=== PATIENT | female | born 1940 | race Caucasian/White ===

== ENCOUNTER 2016-11-18 12:52 | Outpatient (CLI) ==
--- NOTE | 2016-11-19 07:23 | MAMMO ---
EXAM: Digital screening mammogram HISTORY: Screening mammogram COMPARISON: Mammogram 10/13/2013 FINDINGS: Bilateral CC and MLO views of the breasts were performed digitally and demonstrate hetero geneously dense breast density (50 - 75%). Bilateral benign-appearing calcifications are unchanged w hen compared to prior exam. Breast density may limit the evaluation of subtle nodules. There is no d iscrete abnormal nodule or calcification. There is no significant interval change. IMPRESSION: No new or suspicious calcification or nodule RECOMMENDATION: Annual screening mammogram BIRADS category II: Benign findings
== END 2016-11-18 12:53 | disposition home or self-care (01) ==
LOC: RAD 12:52
PROVIDERS: ATTEND Internal Medicine
DX: Z12.31 Encounter for screening mammogram for malignant neoplasm of breast (principal)

== ENCOUNTER 2017-01-21 11:57 | Outpatient (CLI) | payer OTHER ==
[2017-01-21] MEDS ORDERED: PROLIA SUBCUT STA (12:15)
[2017-01-21 12:25] VITALS: BP 113/71; TEMP 97.9
== END 2017-01-21 11:58 | disposition home or self-care (01) ==
LOC: OPMED 11:57
PROVIDERS: ATTEND Internal Medicine
DX: M81.0 Age-related osteoporosis without current pathological fracture (principal)
CPT/HCPCS: 96372

== ENCOUNTER 2017-05-13 13:26 | Outpatient (CLI) ==
--- NOTE | 2017-05-13 13:51 | DI ---
EXAM: Chest two views HISTORY: Chronic obstructive pulmonary disease COMPARISON: 05/03/2015 TECHNIQUE: Two views of the chest were performed FINDINGS: Bibasilar scarring. No definite consolidation. Lungs are hyperinflated. There is no ple ural effusion or pneumothorax. The heart is normal in size. The mediastinal contour is normal, not ing atherosclerosis. There are no acute abnormalities of the bones. IMPRESSION: Chronic obstructive pulmonary disease with bibasilar scarring. No definite superimpose d acute cardiopulmonary process.
== END 2017-05-13 13:27 | disposition home or self-care (01) ==
LOC: RAD 13:26
PROVIDERS: ATTEND Internal Medicine
DX: J44.9 Chronic obstructive pulmonary disease, unspecified (principal)

== ENCOUNTER 2017-07-27 09:59 | Outpatient (CLI) ==
[2017-07-27] MEDS ORDERED: PROLIA SUBCUT STA (10:06)
== END 2017-07-27 10:00 | disposition home or self-care (01) ==
LOC: OPMED 09:59
PROVIDERS: ATTEND Internal Medicine
DX: M81.0 Age-related osteoporosis without current pathological fracture (principal)
CPT/HCPCS: 96372

== ENCOUNTER 2018-01-22 08:59 | Outpatient (CLI) ==
[2018-01-22 09:22] VITALS: BP 133/71; TEMP 98.7
[2018-01-22] MEDS: PROLIA SUBCUT STA (09:38)
== END 2018-01-22 09:00 | disposition home or self-care (01) ==
LOC: OPMED 08:59
PROVIDERS: ATTEND Internal Medicine
DX: M81.0 Age-related osteoporosis without current pathological fracture (principal)
CPT/HCPCS: 96372

== ENCOUNTER 2018-04-13 10:13 | Outpatient (CLI) | payer OTHER ==
--- NOTE | 2018-04-14 11:01 | MAMMO ---
EXAM: Digital screening mammogram with tomosynthesis HISTORY: Screening COMPARISON: 11/18/2016 FINDINGS: Digital MLO and CC views of the right and left breast were performed. Tomosynthesis was performed. Computer aided detection utilized. There are scattered fibroglandular densities. There is no evidence for mass, asymmetry, distortion, or suspicious calcifications in either breast. IMPRESSION: 1. No evidence of malignancy in the right or left breast. 2. Annual screening mammogram is recommended in one year. BIRADS category 1, negative examination
== END 2018-04-13 10:14 | disposition home or self-care (01) ==
LOC: RAD 10:13
PROVIDERS: ATTEND Internal Medicine
DX: Z12.31 Encounter for screening mammogram for malignant neoplasm of breast (principal)
CPT/HCPCS: 77067

== ENCOUNTER 2018-07-29 11:03 | Outpatient (CLI) ==
[2018-07-29 11:28] VITALS: BP 128/72; TEMP 98.2
[2018-07-29] MEDS ORDERED: PROLIA SUBCUT STA (11:30)
== END 2018-07-29 11:04 | disposition home or self-care (01) ==
LOC: OPMED 11:03
PROVIDERS: ATTEND Internal Medicine
DX: M81.0 Age-related osteoporosis without current pathological fracture (principal)
CPT/HCPCS: 96372

== ENCOUNTER 2019-01-28 08:59 | Outpatient (CLI) | payer OTHER ==
[2019-01-28] MEDS ORDERED: PROLIA SUBCUT STA (09:12)
[2019-01-28 09:16] VITALS: BP 128/70; TEMP 98.2
== END 2019-01-28 09:00 | disposition home or self-care (01) ==
LOC: OPMED 08:59
PROVIDERS: ATTEND Internal Medicine
DX: M81.0 Age-related osteoporosis without current pathological fracture (principal)
CPT/HCPCS: 96372